=== PATIENT | female | born 1950 | race Caucasian/White ===

== ENCOUNTER 2022-01-31 10:00 | Day surgery (SDC) | payer MEDICARE ==
[2022-01-27 11:37] VITALS: BMI 12.8
[~2022-01-31 10:00] MED LIST: LACTATED RINGERS 1,000 ML IV SCH
[2022-01-31 10:34] VITALS: TEMP 97.6
[2022-01-31 10:38] LABS: Glucose,Whole Blood 86 mg/dL (75-99)
--- NOTE | 2022-01-31 11:15 | P.GSHP ---
History of Present Illness H&P Date: 01/31/22 Chief Complaint: Malnutrition This a 71-year-old female who presents today for PEG tube placement patient is a chronic issues malnutrition. Patient's previous gastric surgery. The patient understands that she may not be a suitable candidate for PEG tube if her stomach is not well visualized. 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 to tx ulcerative colitis-had a reaction to med & went into pulmonary edema History of Any Multi-Drug Resistant Organisms: None Reported Past Surgical History: Section, Hysterectomy, Orthopedic Surgery Additional Past Surgical History / Comment(s): feeding tubes in past,Billroth II gastrojejunostomy procedure 1988,tracheostomy later closed,lung bx Past Anesthesia/Blood Transfusion Reactions: No Reported Reaction Smoking Status: Former smoker - Past Family History Mother Family Medical History: No Reported History Father Family Medical History: Coronary Artery Disease (CAD), CVA/TIA, Myocardial Infarction (SC) Medications and Allergies Home Medications Medication Instructions Recorded Confirmed Type ALPRAZolam [Xanax] 0.5 mg PO 0600,1200 01/27/22 01/31/22 History ALPRAZolam [Xanax] 1 mg PO HS 01/27/22 01/31/22 History Acetaminophen-Codeine 300-30mg 1 tab PO Q8H PRN 01/27/22 01/31/22 History [Tylenol w/codeine #3] Cyanocobalamin (Vitamin B-12) 1,000 mcg PO DAILY 01/27/22 01/31/22 History [Vitamin B-12] Diphenox-Atrop 2.5-0.025 mg 1 tab PO QID PRN 01/27/22 01/31/22 History [Lomotil] L.acidoph,Paracasei, B.lactis 1 each PO DAILY 01/27/22 01/31/22 History [Probiotic] Lipase/Protease/Amylase [Creon Dr 1 capsule PO TID 01/27/22 01/31/22 History 24,000 Unit Capsule] Melatonin 10 mg PO HS 01/27/22 01/31/22 History Multivit with Calcium,Iron,Min 1 each PO DAILY 01/27/22 01/31/22 History [Women's Multivitamin] Omeprazole [PriLOSEC] 20 mg PO DAILY 01/27/22 01/31/22 History Oxybutynin ER [Ditropan Xl] 10 mg PO BID 01/27/22 01/31/22 History Venlafaxine HCl [Venlafaxine HCl 225 mg PO QAM 01/27/22 01/31/22 History ER] diphenhydrAMINE [Benadryl] 25 mg PO BID PRN 01/27/22 01/31/22 History traZODone HCL 100 mg PO HS 01/27/22 01/31/22 History Allergies Allergy/AdvReac Type Severity Reaction Status Date / Time prochlorperazine Allergy Unknown Verified 01/31/22 10:20 [From Compazine] Sulfa (Sulfonamide Allergy Unknown Verified 01/31/22 10:20 Antibiotics) Surgical - Exam Vital Signs Temp Pulse Resp BP Pulse Ox 97.6 F 85 18 120/59 98 01/31/22 10:32 01/31/22 10:32 01/31/22 10:32 01/31/22 10:32 01/31/22 10:32 - General well developed, well nourished, no distress - Eyes PERRL - ENT normal pinna - Neck no masses - Respiratory normal expansion - Cardiovascular Rhythm: regular - Abdomen Healed midline incision Abdomen: soft, non tender Assessment and Plan Assessment: Malnutrition BMI 14 We'll perform EGD with possible PEG tube placement
[2022-01-31] MEDS ORDERED: LIDOCAINE 1% INJ 10MG/ML (20 ML MDV) ONE (11:16)
[2022-01-31] MEDS ORDERED: PROPOFOL 10 MG/ML 20 ML VIAL IV ONE (11:16)
--- NOTE | 2022-01-31 11:29 | P.OP ---
Date of Procedure: 01/31/22 Preoperative Diagnosis: Severe protein calorie malnutrition, BMI 14 Postoperative Diagnosis: Severe protein calorie malnutrition Procedure(s) Performed: EGD Anesthesia: MAC Surgeon: Ernie Lamas Pathology: none sent Condition: stable Disposition: PACU Description of Procedure: The patient's placed on the endoscopy table in the lateral position. She received IV sedation. The gastroscope was oropharynx passed in the esophagus into the stomach. The patient had previous partial gastrectomy. There was a gastrojejunostomy encountered just below the GE junction. The stomach was visualized. There was no suitable light reflux seen the anterior abdominal wall. At this point the scope was withdrawn. Patient's anatomy prevented PEG tube placement. Patient will need a jejunal feeding tube if she requires tube feeds.
[2022-01-31 11:55] VITALS: BP 104/62; PULSE 81; RESP 16
== END 2022-01-31 12:55 | disposition home or self-care (01) ==
LOC: ORWHC2ENDO 10:00
PROVIDERS: ATTEND Surgery
DX: E43 Unspecified severe protein-calorie malnutrition (principal); Z90.3 Acquired absence of stomach [part of]; E11.9 Type 2 diabetes mellitus without complications; K21.9 Gastro-esophageal reflux disease without esophagitis; K76.9 Liver disease, unspecified; Z87.01 Personal history of pneumonia (recurrent); Z86.16 Personal history of COVID-19; Z86.19 Personal history of other infectious and parasitic diseases; F32.A Depression, unspecified; Z98.891 History of uterine scar from previous surgery; Z90.710 Acquired absence of both cervix and uterus; Z98.890 Other specified postprocedural states; Z87.19 Personal history of other diseases of the digestive system; Z87.09 Personal history of other diseases of the respiratory system; Z87.891 Personal history of nicotine dependence; Z82.49 Family history of ischemic heart disease and other diseases of the circulatory system; Z79.899 Other long term (current) drug therapy; Z88.2 Allergy status to sulfonamides; Z88.8 Allergy status to other drugs, medicaments and biological substances
CPT/HCPCS: 43235; J2001; J2704